=== PATIENT | male | born 1985 | race Caucasian/White ===

== ENCOUNTER 2017-07-20 11:49 | Emergency (ER) | payer MEDICAID ==
[~2017-07-20] VITALS: Ht 175.3 cm; Wt 72.5 kg
[2017-07-20] MEDS ORDERED: DIAZEPAM 5 MG/ML 2 ML SYRINGE IVP ONE (13:00)
[2017-07-20] MEDS ORDERED: MAGNESIUM SULFATE 2 GM, MVI, ADULT NO.1 WITH VIT K 10 ML, THIAMINE HCL 100 MG, FOLIC AC... IV ONE ×5 (13:00)
[2017-07-20] MEDS ORDERED: ONDANSETRON HCL 4 MG/2 ML VIAL IVP ONE (13:15)
[2017-07-20 14:11] LABS: AMPHET/METH SCREEN,URINE NEGATIVE (NEGATIVE); BARBITURATE SCREEN, URINE NEGATIVE (NEGATIVE); BENZODIAZEPINES SCREEN,URINE NEGATIVE (NEGATIVE); CANNABINOID SCREEN,URINE NEGATIVE (NEGATIVE); COCAINE SCREEN,URINE NEGATIVE (NEGATIVE); METHADONE SCREEN, URINE NEGATIVE (NEGATIVE); OPIATE SCREEN,URINE NEGATIVE (NEGATIVE); PHENCYCLIDINE SCREEN,URINE NEGATIVE (NEGATIVE)
[2017-07-20 15:30] VITALS: BP 131/78
== END 2017-07-20 16:10 | disposition home or self-care (01) ==
LOC: EMS 11:52
DX: F10.239 Alcohol dependence with withdrawal, unspecified (principal); Y90.2 Blood alcohol level of 40-59 mg/100 ml
CPT/HCPCS: 36415; 80307; 96365; 96366; 96375; 99285; G0480; J1885; J2405; J3411; J3475; J3490 ×2; J7030